=== PATIENT | female | born 1955 | race Caucasian/White ===

== ENCOUNTER 2017-04-03 17:19 | Emergency (ER) | payer BC ==
[~2017-04-03] VITALS: Ht 157.5 cm; Wt 101.5 kg
[~2017-04-03 17:19] MED LIST: AVAPRO150 MG PO; Glucophage PO; LEXAPRO10 MG PO; Macrobid PO; Mevacor PO; NASACORT AQ16.5 GM NS; Percocet 5/325,Endoc PO; Singulair PO
[2017-04-03 17:55] LABS: MCH 28.5 PG (29.0-34.0); MCHC 33.4 G/DL (30.0-36.0); MCV 85.4 FL (83-99); MEAN PLAT.VOLUME 10.6 uM^3 (9.5-12.4); PLATELET COUNT 257 K/uL (156-360); RBC DIS.WIDTH-CV 12.7 % (11.8-14.6); RBC DIS.WIDTH-SD 39.6 % (39-53); RED BLOOD COUNT 5.15 M/uL (3.80-5.20); WHITE BLOOD COUNT 13.2 K/uL (4.1-10.2)
[2017-04-03 17:59] LABS: ADD MIUA? YES; BILIRUBIN NEGATIVE; BLOOD NEGATIVE; COLOR YELLOW ((YELLOW)); GLUCOSE (STRIP) >=500; KETONES 5; LEUKOCYTES TRACE; NITRITE NEGATIVE; PROTEIN (STRIP) NEGATIVE; SPECIFIC GRAVITY 1.018 (1.000-1.030); UROBILINOGEN 0.2 MG/DL (0.2-1.0)
[2017-04-03 18:04] LABS: CHLORIDE 106 mEq/L (99-109); POTASSIUM 4.1 mEq/L (3.7-5.4); SODIUM 136 mEq/L (136-147)
[2017-04-03 18:05] LABS: BACTERIA RARE /HPF; EPITHELIAL CELLS RARE /HPF; HYALINE CASTS 0-5 /LPF; MUCUS TRACE /LPF; RED BLOOD CELLS 0-5 /HPF (0-5); UCUL ADDED? YES
[2017-04-03 18:06] LABS: GLUCOSE 170 mg/dL (70-99)
[2017-04-03 18:08] LABS: ANION GAP 7 MEQ/L (2-14); TOTAL BILIRUBIN 0.4 mg/dL (0.0-1.0)
[2017-04-03 18:10] LABS: ALKALINE PHOSPHATASE 113 IU/L (3-129); GFR ESTIMATE (CALCULATED) > 59 mL/min/
[2017-04-03 18:11] LABS: UREA NITROGEN (BUN) 17 mg/dL (9-23)
[2017-04-03 18:14] LABS: LIPASE 30 U/L (1.0-51.0)
[2017-04-03] MEDS ORDERED: GLUCOPHAGE1000 MG PO (19:47)
[2017-04-03] MEDS ORDERED: JANUVIA100 MG PO (19:48)
[2017-04-03] MEDS ORDERED: FARXIGA5 MG PO (19:49)
[2017-04-03] MEDS ORDERED: PROAIR HFA8.5 GM IH (19:49)
[2017-04-03] MEDS ORDERED: NORCO 5/3251 TABLET PO (20:37)
[2017-04-03] MEDS ORDERED: FLAGYL500 MG PO (21:05)
[2017-04-03] MEDS ORDERED: CIPRO500 MG PO (21:05)
[2017-04-03 22:19] VITALS: BP 144/85
== END 2017-04-03 22:24 | disposition home or self-care (01) ==
LOC: EXP 17:19 → EME 17:19 → EXP 22:24
DX: R10.32 Left lower quadrant pain (principal); R11.0 Nausea; K57.32 Diverticulitis of large intestine without perforation or abscess without bleeding; Z86.010 Personal history of colon polyps; J45.909 Unspecified asthma, uncomplicated; I10 Essential (primary) hypertension; E11.9 Type 2 diabetes mellitus without complications; Z79.84 Long term (current) use of oral hypoglycemic drugs
CPT/HCPCS: 74177; 80053; 81003; 83690; 85027; 87086; 99281; 99285; J2270; J7040